=== PATIENT | male | born 1955 | race Caucasian/White ===

== ENCOUNTER 2023-05-13 17:28 | Emergency (ER) | payer OTHER, MEDICARE ==
[~2023-05-13] VITALS: Ht 177.8 cm; Wt 92.0 kg
[2023-05-13] MEDS ORDERED: BOOSTRIX VACCINE (TETANUS/DIPHTH/ACEL. PERTUSSIS) 0.5ML SYR IM.IMMUN ONE (17:45)
[2023-05-13] MEDS ORDERED: ISOVUE-370 76% 100ML VIAL As Ordered ONE (18:09)
[2023-05-13 18:24] LABS: BASO # 0.1 10^3/uL (0.0-0.2); BASO % 0.9 % (0.0-1.0); EOS # 0.1 10^3/uL (0.0-0.5); EOS % 1.8 % (0.0-3.0); HEMATOCRIT 47.8 % (42.0-52.0); HEMOGLOBIN 16.3 g/dl (13.5-17.5); LYMPH # 2.6 10^3/uL (1.5-5.0); LYMPH % 32.2 % (24.0-44.0); MEAN CORPUSCULAR HEMOGLOBIN 32.3 pg (27.0-33.0); MEAN CORPUSCULAR HGB CONC 34.1 g/dl (32.0-36.5); MEAN CORPUSCULAR VOLUME 94.8 fl (80.0-96.0); MONO % 12.6 % (2.0-8.0); NEUTROPHILS # 4.1 10^3/uL (1.5-8.5); PLATELET COUNT, AUTOMATED 249 10^3/uL (150-450); RED BLOOD COUNT 5.04 10^6/uL (4.30-6.10); WHITE BLOOD COUNT 7.9 10^3/uL (4.0-10.0)
[2023-05-13 18:37] LABS: INR 1.24; PROTHROMBIN TIME 15.2 SECONDS (12.5-14.5)
[2023-05-13 18:38] LABS: PARTIAL THROMBOPLASTIN TIME 21.8 SECONDS (24.8-34.2)
[2023-05-13 18:51] LABS: CK-MB VALUE MASS 1.2 NG/ML (<3.6)
[2023-05-13 18:54] LABS: BLOOD UREA NITROGEN 23 MG/DL (9-23); CALCIUM LEVEL 9.4 MG/DL (8.3-10.6); CARBON DIOXIDE LEVEL 26 MMOL/L (20-31); CHLORIDE LEVEL 105 MMOL/L (98-107); CPK CREATINE PHOSPHOKINASE 129 U/L (46-171); CREATININE FOR GFR 1.07 MG/DL (0.70-1.30); GLOMERULAR FILTRATION RATE > 60.0 (>42); GLUCOSE, FASTING 118 MG/DL (74-106); MB/CK RELATIVE INDEX 0.93 (< OR =4); POTASSIUM SERUM 3.8 MMOL/L (3.5-5.1); SODIUM LEVEL 141 MMOL/L (136-145)
[2023-05-13] MEDS: LIDOCAINE 1% MDV 20ML VIAL SC ONE ×2 (19:45→20:16)
[2023-05-13 20:07] VITALS: TEMP 97.1
[2023-05-13 20:20] LABS: CK-MB VALUE MASS 1.2 NG/ML (<3.6); MB/CK RELATIVE INDEX 0.84 (< OR =4)
[2023-05-13 21:28] VITALS: O2SAT 96
[2023-05-13 21:31] VITALS: BP 133/74
== END 2023-05-13 21:40 | disposition home or self-care (01) ==
LOC: M ED 17:28 → EDBD 17:28 → M ED 21:40
DX: S50.812A Abrasion of left forearm, initial encounter (principal); S60.811A Abrasion of right wrist, initial encounter; V49.00XA Driver injured in collision with unspecified motor vehicles in nontraffic accident, initial encounter; I49.1 Atrial premature depolarization; I10 Essential (primary) hypertension; K21.9 Gastro-esophageal reflux disease without esophagitis; E78.5 Hyperlipidemia, unspecified; Z23 Encounter for immunization
CPT/HCPCS: 70450; 71260; 72125; 72128; 72131; 73080; 73090; 73110; 74177; 80047; 80048; 82550; 82553; 84484; 85025; 85610; 85730; 90471; 90715; 93005; 93041; 94760; 96372; 99285; Q9967